=== PATIENT | female | born 1975 | race Caucasian/White ===

== ENCOUNTER → 2020-02-21 11:06 | Outpatient (CLI) | payer OTHER, SELFPAY ==
--- NOTE | 2020-02-21 | DI.MRI.S_ITS ---
PROCEDURE: MRFOOT LT WO CON INDICATIONS: Posterior tibial tendinitis, left leg TECHNIQUE: Noncontrast sagittal T1 spin echo and T2 fast spin echo with fat saturation, long-axis T1 spin echo and T2 fast spin echo with fat saturation, short-axis T1 spin echo and T2 fast spin echo with fat saturation through the forefoot. COMPARISON: None. FINDINGS: Image quality: Excellent. Bones and joints: No bone marrow contusions or metatarsal stress fractures. Midfoot joint degeneration with subchondral cystic change, spurring and sclerosis The sesamoid bones appear in expected positions, without internal edema. No metatarsophalangeal joint degeneration. No intraosseous lesions. Soft tissues: The visualized plantar foot muscles demonstrate normal signal and bulk. Visualized flexor and extensor tendons appear intact, without tenosynovitis. The distal insertions of the peroneus brevis and longus tendons appear intact. The principal Lisfranc ligament appears intact. No soft tissue ganglion cysts or bursal fluid collections. Sagittal images demonstrate no evidence for plantar plate tears. IMPRESSION: Midfoot degenerative changes. Dictated by: Santo Armijo M.D. on 02/23/2020 at 13:02 Approved by: Santo Armijo M.D. on 02/23/2020 at 13:13
--- NOTE | 2020-02-21 | DI.MRI.S_ITS ---
PROCEDURE: MR ANKLE LT WO CON INDICATIONS: Posterior tibial tendinitis, left leg TECHNIQUE: Noncontrast sagittal T1 spin echo and T2 fast spin echo with fat saturation, axial proton density fast spin echo and T2 fast spin echo with fat saturation, coronal T1 spin echo and T2 fast spin echo with fat saturation through the ankle/hindfoot. COMPARISON: None. FINDINGS: Image quality: Excellent. Bones and joints: No bone marrow contusions or fractures. Diffuse midfoot and hindfoot joint degeneration. No hindfoot coalitions. No osteochondral injuries of the talar dome. Tibiotalar and subtalar joint effusions.. Medial structures: Posterior tibialis intact. There is tenosynovitis. There is unfused accessory navicular Flexor digitorum longus intact. Flexor hallucis longus tendon intact. The posterior tibial neurovascular bundle appears normal within the tarsal tunnel, without extrinsic mass effect. Deltoid ligament complex appears intact. The spring ligament appears intact. Lateral structures: Anterior talofibular ligament intact. Calcaneofibular ligament intact. Posterior talofibular ligament intact. Anterior and posterior tibiofibular ligaments appear intact, as is the intermalleolar ligament. Tibiofibular syndesmosis is normal in width at 2 mm or less. Peroneus longus and brevis tendons appear normal. Peroneal tenosynovitis also noted. Bony peroneal tubercle and retrotrochlear prominence are normal in size. Sinus tarsi demonstrates normal fatty signal, without edema, fibrosis, or cyst formation. Anterior structures: Tibialis anterior intact. Extensor hallucis longus intact. Extensor digitorum longus tendon intact. Dorsal talonavicular ligament appears intact. Posterior and plantar structures: Mild distal Achilles tendinopathy. Medial and lateral bands of the plantar fascia intact. No abductor digiti quinti muscle atrophy to suggest Larios neuropathy. IMPRESSION: Posterior tibialis tenosynovitis. Incidentally noted accessory unfused navicular Mild peroneal tenosynovitis Dictated by: Santo Armijo M.D. on 02/23/2020 at 8:57 Approved by: Santo Armijo M.D. on 02/23/2020 at 9:13
== END ==
PROVIDERS: Referring Provider Podiatrist; Visit Provider Podiatrist
DX: M76.822 Posterior tibial tendinitis, left leg (principal); M79.672 Pain in left foot; M19.072 Primary osteoarthritis, left ankle and foot; M25.475 Effusion, left foot; R26.2 Difficulty in walking, not elsewhere classified
CPT/HCPCS: 73718; 73721

== ENCOUNTER → 2020-07-02 17:28 | Outpatient (CLI) | payer OTHER, SELFPAY ==
--- NOTE | 2020-07-02 17:31 | DI.MG.S_ITS ---
BILATERAL DIGITAL SCREENING MAMMOGRAM 3D/2D WITH CAD: 07/02/2020 CLINICAL: Baseline exam. Routine screening. No prior exams were available for comparison. There are scattered fibroglandular elements in both breasts. Current study was also evaluated with a Computer Aided Detection (CAD) system. No significant masses, calcifications, or other findings are seen in either breast. IMPRESSION: NEGATIVE There is no mammographic evidence of malignancy. A 1 year screening mammogram is recommended. This exam was interpreted at Station ID: [id number]. NOTE: For mammograms, a report in lay terms will be sent to the patient. Approximately 15% of breast malignancies will not be visualized mammographically. In the management of a palpable breast mass, a negative mammogram must not discourage biopsy of a clinically suspicious lesion. Electronically Signed By: Jesus [email or web address]:07/05/2020 08:04:12 letter sent: Normal Exam ACR BI-RADS Category 1: Negative [id number]
== END ==
PROVIDERS: PCP Family Medicine; Referring Provider Family Medicine; Visit Provider Family Medicine
DX: Z12.31 Encounter for screening mammogram for malignant neoplasm of breast (principal)
CPT/HCPCS: 77063; 77067

== ENCOUNTER → 2020-10-18 16:03 | Outpatient (CLI) | payer OTHER, SELFPAY ==
--- NOTE | 2020-10-18 | DI.MRI.S_ITS ---
PROCEDURE: MR ANKLE LT WO CON INDICATIONS: Pain in left ankle TECHNIQUE: Noncontrast sagittal T1 spin echo and T2 fast spin echo with fat saturation, axial proton density fast spin echo and T2 fast spin echo with fat saturation, coronal T1 spin echo and T2 fast spin echo with fat saturation through the ankle/hindfoot. COMPARISON: [facility], MR, MR ANKLE LT WO CON, 02/21/2020, 11:50. FINDINGS: Bones and joints: Bones: Cortical fracture involving the tip of the lateral malleolus with associated marrow edema. Presumed degenerative cystic changes seen in the medial cuneiform. Scattered degenerative subchondral sclerosis and spurring. Coalitions: No hindfoot coalitions. Talar dome: There is mild marrow edema present in the lateral talar dome which could be from acute contusion versus reactive to early osteoarthritis. Other: Tibiotalar joint effusion. Subcutaneous edema overlying dorsal lateral midfoot and forefoot. There is also subcutaneous edema overlying the lateral malleolus. Subtalar joint effusion also noted. Medial structures: Posterior tibialis: Intact. There is tenosynovitis, mild. Flexor digitorum longus: Intact. Flexor hallucis longus: Intact. Posterior tibial neurovascular bundle: Normal. Deltoid ligament complex: Intact. Spring ligament: Intact. Lateral structures: Anterior talofibular ligament: Intact. Calcaneofibular ligament: Not well seen and presumed ruptured. Posterior talofibular ligament: Intact. Anterior tibiofibular ligament: Intact. Posterior tibiofibular ligament: Intact. Intermalleolar ligament: Intact. Tibiofibular syndesmosis: Normal. Peroneus longus: Intact. Mild tenosynovitis. Peroneus brevis: Intact. Mild tenosynovitis Bony peroneal tubercle and retrotrochlear prominence: Normal. Sinus tarsi: Normal. Anterior structures: Tibialis anterior: Intact. Extensor hallucis longus: Intact. Extensor digitorum longus: Intact. Dorsal talonavicular ligament: Intact. Posterior and plantar structures: Achilles tendon: Intact. Plantar fascia: Intact. Muscles: No abductor digiti quinti muscle atrophy to suggest Larios neuropathy. IMPRESSION: Cortical avulsion fracture of the tip the lateral malleolus with associated marrow edema. This finding new since 02/21/20. Additional marrow edema involving the lateral talar dome which could be from acute contusion versus reactive to early osteoarthritis. This has developed since the prior study, arguing for marrow contusion. Diffuse cellulitis and soft tissue swelling overlying the dorsal lateral foot and lateral malleolus. Mild posterior tibialis tenosynovitis. Unchanged since the prior study Possible rupture of the calcaneofibular ligament. This is new since the prior study. Tibiotalar and subtalar joint effusion. Mild peroneus longus and brevis tenosynovitis. This was present on the prior study. Dictated by: Santo Armijo M.D. on 10/19/2020 at 8:12 Approved by: Santo Armijo M.D. on 10/19/2020 at 8:26
== END ==
PROVIDERS: PCP Family Medicine; Referring Provider Family Medicine; Visit Provider Family Medicine
DX: S82.62XA Displaced fracture of lateral malleolus of left fibula, initial encounter for closed fracture (principal); M25.572 Pain in left ankle and joints of left foot; M65.872 Other synovitis and tenosynovitis, left ankle and foot; M25.472 Effusion, left ankle; L03.116 Cellulitis of left lower limb
CPT/HCPCS: 73721

== ENCOUNTER → 2022-02-04 11:26 | Outpatient (CLI) | payer OTHER, SELFPAY ==
--- NOTE | 2022-02-04 11:29 | DI.MG.S_ITS ---
BILATERAL DIGITAL SCREENING MAMMOGRAM 3D/2D WITH CAD: 02/04/2022 CLINICAL: Routine screening. Comparison is made to exam dated: 07/02/2020 mammogram - [facility]. There are scattered areas of fibroglandular density in both breasts (category b / 25%-50% glandular tissue). Current study was also evaluated with a Computer Aided Detection (CAD) system. No significant masses, calcifications, or other findings are seen in either breast. There has been no significant interval change. IMPRESSION: NEGATIVE There is no mammographic evidence of malignancy. A 1 year screening mammogram is recommended. Based on the Tyrer Cuzick model (a risk assessment model) the patient's lifetime risk is 7.6% and her 10 year risk is 1.3%. According to the ACR, ACS, and NCCN guidelines, an annual breast MRI exam along with mammogram is recommended if the patient's lifetime risk is 20% or greater. This exam was interpreted at Station ID: [id number]. NOTE: For mammograms, a report in lay terms will be sent to the patient. Approximately 15% of breast malignancies will not be visualized mammographically. In the management of a palpable breast mass, a negative mammogram must not discourage biopsy of a clinically suspicious lesion. Electronically Signed By: Ángel smart/katia:02/07/2022 08:19:34 letter sent: Normal Exam ACR BI-RADS Category 1: Negative [id number]
== END ==
PROVIDERS: PCP Family Medicine; Referring Provider Family Medicine; Visit Provider Family Medicine
DX: Z12.31 Encounter for screening mammogram for malignant neoplasm of breast (principal)
CPT/HCPCS: 77063; 77067

== ENCOUNTER → 2022-08-10 07:48 | Outpatient (CLI) | payer OTHER, SELFPAY ==
[2022-08-10 09:22] LABS: Glucose 93 mg/dL (70-100)
[2022-08-12 06:36] LABS: Insulin Level Total 8.2 uIU/mL (2.6-24.9)
== END ==
PROVIDERS: PCP Family Medicine; Referring Provider Obstetrics & Gynecology; Visit Provider Obstetrics & Gynecology
DX: E28.2 Polycystic ovarian syndrome (principal); E66.9 Obesity, unspecified
CPT/HCPCS: 36415; 82947; 83525